=== PATIENT | male | born 1970 | race Caucasian/White ===

== ENCOUNTER 2016-06-03 12:59 | Observation (INO) | payer OTHER ==
[~2016-06-03] VITALS: Ht 175.3 cm; Wt 111.1 kg
[~2016-06-03 12:59] MED LIST: ASPIRIN CHEWABL81 MG PO; BRILINTA90 MG PO; COLCHICINE0.6 M1 PO; LIPITOR TAB 2020 MG PO; LISINOPRIL40 MG PO; LISINOPRIL5 MG PO; LOPRESSOR 25 MG25 MG PO; NITROSTAT0.4 MG SL; PNEUMOVAX INJ
[2016-06-03 16:06] LABS: HEMOGLOBIN 14.7 gm/dl (14.0-17.5); RED BLOOD COUNT 4.92 M/UL (4.20-5.50); WHITE BLOOD COUNT 8.6 K/UL (4.5-11.0)
[2016-06-03 16:35] LABS: BUN/CREATININE RATIO 11 (0-10)
[2016-06-03] MEDS ORDERED: PLAVIX 75 MG TA75 MG PO (22:55)
[2016-06-03] MEDS ORDERED: NAPROXEN SODIU550 MG PO (22:55)
== END 2016-06-04 11:04 | disposition home or self-care (01) ==
LOC: ER1 12:59 → ZEROF 17:50 → MED SURG 4 20:44
PROVIDERS: Physician Assistant; ADMIT Internal Medicine
DX: R07.9 Chest pain, unspecified (principal); I25.10 Atherosclerotic heart disease of native coronary artery without angina pectoris; I25.2 Old myocardial infarction; I10 Essential (primary) hypertension; Z87.39 Personal history of other diseases of the musculoskeletal system and connective tissue; Z87.442 Personal history of urinary calculi; Z79.82 Long term (current) use of aspirin; Z79.02 Long term (current) use of antithrombotics/antiplatelets; Z79.899 Other long term (current) drug therapy; Z98.890 Other specified postprocedural states
CPT/HCPCS: 36415; 71010; 80053; 80061; 82550; 82553; 83874; 84484; 85025; 93005; 99285; G0378

== ENCOUNTER 2020-08-10 09:14 | Emergency (ER) | payer SELFPAY ==
[~2020-08-10 09:14] MED LIST changes: +NAPROXEN SODIU550 MG PO; +PLAVIX 75 MG TA75 MG PO; +PREDNISONE20 MG PO; +TESSALON PERLE100 MG PO; +ZITHROMAX TRI-500 MG PO
[2020-08-10 10:24] LABS: RED BLOOD COUNT 5.18 M/UL (4.20-5.50); WHITE BLOOD COUNT 7.1 K/UL (4.5-11.0)
[2020-08-10 10:45] LABS: BUN/CREATININE RATIO 14 (0-10)
== END 2020-08-10 13:41 | disposition home or self-care (01) ==
LOC: ER1 09:14
PROVIDERS: Physician Assistant
DX: R07.89 Other chest pain (principal); E78.5 Hyperlipidemia, unspecified; I11.9 Hypertensive heart disease without heart failure; I25.2 Old myocardial infarction; Z79.82 Long term (current) use of aspirin
CPT/HCPCS: 71045; 80053; 82550; 82553; 83874; 84484; 85025; 85379; 93005; 96374; 99285; J1885

== ENCOUNTER 2020-09-16 06:02 | Emergency (ER) | payer SELFPAY ==
[2020-09-16 06:44] LABS: HEMOGLOBIN 15.9 gm/dl (14.0-17.5); RED BLOOD COUNT 5.14 M/UL (4.20-5.50); WHITE BLOOD COUNT 6.7 K/UL (4.5-11.0)
[2020-09-16 07:07] LABS: BUN/CREATININE RATIO 6 (0-10)
[2020-09-16] MEDS ORDERED: ZOFRAN4 MG PO (09:17)
== END 2020-09-16 09:37 | disposition home or self-care (01) ==
LOC: ER1 06:02
PROVIDERS: Physician Assistant
DX: R10.31 Right lower quadrant pain (principal); I10 Essential (primary) hypertension; I25.2 Old myocardial infarction
CPT/HCPCS: 80053; 81001; 85025; 96374; 96375; 99285; J1885; J2270; J2405; Q9967

== ENCOUNTER 2021-03-04 07:47 | Emergency (ER) | payer SELFPAY ==
[~2021-03-04 07:47] MED LIST changes: +ZOFRAN4 MG PO
[2021-03-04 08:06] LABS: HEMOGLOBIN 15.4 gm/dl (14.0-17.5); RED BLOOD COUNT 5.35 M/UL (4.20-5.50); WHITE BLOOD COUNT 3.6 K/UL (4.5-11.0)
[2021-03-04 08:40] LABS: BUN/CREATININE RATIO 8 (0-10)
[2021-03-04] MEDS ORDERED: ZOFRAN ODT 4 MG4 MG GT (09:13)
== END 2021-03-04 10:17 | disposition home or self-care (01) ==
LOC: ER1 07:47
PROVIDERS: Emergency Medicine
DX: U07.1 COVID-19 (principal); I10 Essential (primary) hypertension; R55 Syncope and collapse
CPT/HCPCS: 0240U; 70450; 71045; 80053; 80307; 81001; 82550; 82553; 83690; 83735; 83874; 84484; 85025; 93005; 96374; 96375; 99285; G0480; J1885; J2405

== ENCOUNTER 2021-11-02 08:00 | Emergency (ER) | payer OTHER ==
[~2021-11-02 08:00] MED LIST changes: +ZOFRAN ODT 4 MG4 MG GT
[2021-11-02 11:17] LABS: HEMOGLOBIN 15.8 gm/dl (14.0-17.5); RED BLOOD COUNT 5.19 M/UL (4.20-5.50); WHITE BLOOD COUNT 9.3 K/UL (4.5-11.0)
[2021-11-02 11:43] LABS: BUN/CREATININE RATIO 13 (0-10)
[2021-11-02] MEDS ORDERED: IBUPROFEN600 MG PO (12:26)
== END 2021-11-02 13:01 | disposition home or self-care (01) ==
LOC: ER1 08:00
DX: M25.471 Effusion, right ankle (principal); I11.9 Hypertensive heart disease without heart failure
CPT/HCPCS: 73610; 80053; 82550; 82553; 84484; 85025; 93005; 99284